=== PATIENT | male | born 2000 | race Caucasian/White ===

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

== ENCOUNTER 2021-01-09 10:07 | Emergency (ER) | payer OTHER ==
[~2021-01-09 10:07] MED LIST changes: +Zofran4 MG PO
[2021-01-09] MEDS ORDERED: ONDA4ODT MM (11:03)
== END 2021-01-09 12:08 | disposition home or self-care (01) ==
LOC: ER 10:07
DX: U07.1 COVID-19 (principal); R11.2 Nausea with vomiting, unspecified; Z91.048 Other nonmedicinal substance allergy status
CPT/HCPCS: 99282; A9270